=== PATIENT | male | born 1945 | race Caucasian/White ===

== ENCOUNTER 2023-04-08 13:07 | Inpatient (IN) | payer OTHER ==
[2023-04-08] MEDS ORDERED: NOREPINEPHRINE BITARTRATE/D5W 8 MG/250 ML BAG IVPB ONE (13:17)
[2023-04-08] MEDS ORDERED: VASOPRESSIN 20 UNITS/ML VIAL IV ONE (13:41)
[2023-04-08] MEDS: VASOPRESSIN 40 UNITS/100 ML BAG IV SCH ×2 (14:07→23:31)
[2023-04-08 14:24] LABS: VENOUS BASE EXCESS -18.5 mmol/L (-2-2); VENOUS O2 SATURATION 73.7 % (70-80)
[2023-04-08 14:25] LABS: HEMATOCRIT 34.7 % (35.4-49); HEMOGLOBIN 10.6 GM/dL (11.7-16.9); MCH 29.4 pg (25.7-33.7); MCHC 30.6 g/dl (32.0-35.9); MEAN CELL VOLUME 95.9 fl (80-96); MEAN PLT VOLUME 7.6 fl (7.5-11.1); PLATELET COUNT 241 10^3/uL (134-434); RBC 3.62 M/mm3 (4.00-5.60); RDW 16.5 % (11.9-15.9)
[2023-04-08 14:29] LABS: VENOUS PCO2 72.2 mmHg (38-52); VENOUS PH 6.932 (7.310-7.410)
[2023-04-08 14:35] LABS: INR 2.93 (0.83-1.09); PROTHROMBIN TIME (PATIENT) 33.6 SEC (9.7-13.0)
[2023-04-08 14:37] LABS: ACTIVATED PTT 36.1 SECONDS (25.2-36.5)
[2023-04-08 14:49] LABS: POTASSIUM 5.1 mmol/L (3.5-5.1)
[2023-04-08 14:52] LABS: ALBUMIN 1.4 g/dl (3.4-5.0); ANISOCYTOSIS 1+; BLOOD UREA NITROGEN 59.3 mg/dL (7-18); CALCIUM 7.9 mg/dL (8.5-10.1); MACROCYTOSIS 0; MAGNESIUM 2.5 mg/dL (1.8-2.4)
[2023-04-08 14:55] LABS: CREATININE 1.9 mg/dL (0.55-1.3); PHOSPHOROUS 6.8 mg/dL (2.5-4.9)
[2023-04-08 14:56] LABS: BILIRUBIN,TOTAL 0.7 mg/dL (0.2-1)
[2023-04-08] MEDS ORDERED: NOREPINEPHRINE BITARTRATE 4,000 MCG in DEXTROSE 5%-WATER - 496 ML IV SCH (15:00)
[2023-04-08 15:59] LABS: LACTIC ACID 11.5 mmol/L (0.4-2.0)
[2023-04-08] MEDS ORDERED: LACTATED RINGERS SOLUTION 1000 ML INFUS.BAG IV ONE (16:12)
[2023-04-08] MEDS ORDERED: SODIUM CHLORIDE 0.9% 500 ML INFUS.BAG IV ONE (16:13)
[2023-04-08] MEDS: NOREPINEPHRINE BITARTRATE/D5W 8 MG/250 ML BAG IVPB SCH ×3 (16:45→21:47)
[2023-04-08 17:27] LABS: ARTERIAL BLD GAS O2 SATURATION 99.7 % (95-98); ARTERIAL BLOOD GAS BASE EXCESS -15.7 mmol/L (-2-2); ARTERIAL BLOOD GAS PO2 384.6 mmHg (80-100)
[2023-04-08 17:29] LABS: ALLENS TEST POSITIVE; VENT MODE AC; VENT RATE 14
[2023-04-08] MEDS ORDERED: DEXTROSE 5%-WATER - 1,000 ML IV SCH (20:30)
[2023-04-08] MEDS ORDERED: SODIUM CHLORIDE 1,000 ML IV SCH (20:45)
[2023-04-08] MEDS: FLUDROCORTISONE ACETATE 0.1 MG TABLET (FP) PO SCH (20:57)
[2023-04-08] MEDS: HEPARIN NA (PORCINE) 5,000 UNITS/ML 1ML VIAL SQ SCH (21:13)
[2023-04-08] MEDS: HYDROCORTISONE SOD SUCCINATE 100 MG/2 ML VIAL IVPUSH SCH (21:13)
[2023-04-08] MEDS: CHLORHEXIDINE GLUCONATE 4% CLEANSER FOR DECOLONIZATION TP SCH (21:14)
[2023-04-08] MEDS: MUPIROCIN 2% TOPICAL OINTMENT FOR DECOLONIZATION NS SCH (23:30)
[2023-04-09] MEDS: HYDROCORTISONE SOD SUCCINATE 100 MG/2 ML VIAL IVPUSH SCH ×4 (02:12→22:00)
[2023-04-09] MEDS: NOREPINEPHRINE BITARTRATE/D5W 8 MG/250 ML BAG IVPB SCH ×2 (02:20→15:18)
[2023-04-09] MEDS: HEPARIN NA (PORCINE) 5,000 UNITS/ML 1ML VIAL SQ SCH ×3 (05:37→22:00)
[2023-04-09 07:43] LABS: HEMOGLOBIN 10.7 GM/dL (11.7-16.9); MCH 29.2 pg (25.7-33.7); MCHC 30.7 g/dl (32.0-35.9); MEAN PLT VOLUME 8.1 fl (7.5-11.1); PLATELET COUNT 307 10^3/uL (134-434); RBC 3.68 M/mm3 (4.00-5.60); RDW 16.3 % (11.9-15.9); WHITE BLOOD COUNT 18.6 K/mm3 (4.0-10.0)
[2023-04-09 07:54] LABS: POTASSIUM 4.8 mmol/L (3.5-5.1)
[2023-04-09 07:59] LABS: CALCIUM 7.1 mg/dL (8.5-10.1)
[2023-04-09 08:00] LABS: ALBUMIN 1.4 g/dl (3.4-5.0)
[2023-04-09 08:01] LABS: BLOOD UREA NITROGEN 70.1 mg/dL (7-18); MAGNESIUM 1.9 mg/dL (1.8-2.4)
[2023-04-09 08:03] LABS: CREATININE 2.2 mg/dL (0.55-1.3); PHOSPHOROUS 5.5 mg/dL (2.5-4.9)
[2023-04-09 08:05] LABS: BILIRUBIN,TOTAL 0.7 mg/dL (0.2-1)
[2023-04-09 09:04] LABS: ARTERIAL BLD GAS O2 SATURATION 97.4 % (95-98); ARTERIAL BLOOD GAS BASE EXCESS -15.6 mmol/L (-2-2); ARTERIAL BLOOD GAS PO2 121.7 mmHg (80-100)
[2023-04-09] MEDS: SODIUM BICARBONATE 8.4% - 150 MEQ in DEXTROSE 5%-WATER - 1,000 ML IV SCH (09:04)
[2023-04-09 09:05] LABS: ALLENS TEST POSITIVE
[2023-04-09 09:06] LABS: VENT MODE AC; VENT RATE 14
[2023-04-09 09:07] LABS: ARTERIAL BLOOD GAS pH 7.156 (7.350-7.450)
[2023-04-09 09:08] LABS: ANISOCYTOSIS 0; HELMET CELLS 0; HOWELL-JOLLY BODIES 0; MACROCYTOSIS 0; OVALOCYTE 0; ROULEAU 0; SICKELED CELLS 0; TARGET CELLS 0; TEAR DROP CELLS 0; TOXIC GRANULATION 0
[2023-04-09 09:12] LABS: LACTIC ACID 7.8 mmol/L (0.4-2.0)
[2023-04-09] MEDS: PANTOPRAZOLE SODIUM 40 MG VIAL IVPUSH SCH (09:54)
[2023-04-09] MEDS: MUPIROCIN 2% TOPICAL OINTMENT FOR DECOLONIZATION NS SCH ×2 (09:55→22:00)
[2023-04-09] MEDS: FLUDROCORTISONE ACETATE 0.1 MG TABLET (FP) PO SCH (09:55)
[2023-04-09] MEDS ORDERED: PIPERACILLIN/TAZOB 2.25 GM 2.25 GM in DEXTROSE 5%-WATER - 50 ML IVPB SCH (10:00)
[2023-04-09] MEDS ORDERED: MEROPENEM 500 MG in DEXTROSE 5%-WATER 100 ML IVPB SCH ×2 (12:15→22:00)
[2023-04-09] MEDS: MEROPENEM 500 MG in DEXTROSE 5%-WATER 100 ML IVPB SCH (12:16)
[2023-04-09 17:39] VITALS: BMI 17.3
[2023-04-09] MEDS: INSULIN SLIDING SCALE (NOVOLOG) 1 VIAL SQ SCH ×2 (18:47→23:58)
[2023-04-09] MEDS ORDERED: LACTATED RINGERS SOLUTION 1,000 ML/1,000 ML INFUS.BAG IV STA (19:31)
[2023-04-09] MEDS: VASOPRESSIN 40 UNITS/100 ML BAG IV SCH (21:59)
[2023-04-09] MEDS: CHLORHEXIDINE GLUCONATE 4% CLEANSER FOR DECOLONIZATION TP SCH (22:00)
[2023-04-10] MEDS: MEROPENEM 500 MG in DEXTROSE 5%-WATER 100 ML IVPB SCH ×2 (00:06→12:23)
[2023-04-10] MEDS: SODIUM BICARBONATE 8.4% - 150 MEQ in DEXTROSE 5%-WATER - 1,000 ML IV SCH (00:06)
[2023-04-10] MEDS: HYDROCORTISONE SOD SUCCINATE 100 MG/2 ML VIAL IVPUSH SCH ×4 (02:30→21:48)
[2023-04-10] MEDS: NOREPINEPHRINE BITARTRATE/D5W 8 MG/250 ML BAG IVPB SCH ×4 (02:31→22:06)
[2023-04-10] MEDS: HEPARIN NA (PORCINE) 5,000 UNITS/ML 1ML VIAL SQ SCH ×3 (06:06→21:49)
[2023-04-10] MEDS: INSULIN SLIDING SCALE (NOVOLOG) 1 VIAL SQ SCH ×3 (06:11→18:26)
[2023-04-10 06:31] LABS: ARTERIAL BLD GAS O2 SATURATION 98.7 % (95-98); ARTERIAL BLOOD GAS BASE EXCESS -8.1 mmol/L (-2-2); ARTERIAL BLOOD GAS PO2 145.4 mmHg (80-100); ARTERIAL BLOOD GAS pH 7.318 (7.350-7.450)
[2023-04-10 06:41] LABS: ALLENS TEST POSITIVE
[2023-04-10 06:42] LABS: PT'S TEMP 97.7
[2023-04-10 06:43] LABS: VENT MODE A/C; VENT RATE 14
[2023-04-10 09:01] LABS: CHLORIDE 106 mmol/L (98-107); POTASSIUM 4.3 mmol/L (3.5-5.1); SODIUM 139 mmol/L (136-145)
[2023-04-10 09:02] LABS: MAGNESIUM 1.6 mg/dL (1.8-2.4)
[2023-04-10 09:05] LABS: ALBUMIN 1.4 g/dl (3.4-5.0); ANION GAP 12 mmol/L (4-13); BLOOD UREA NITROGEN 69.6 mg/dL (7-18); CO2 21 mmol/L (21-32); GLUCOSE,RANDOM 265 mg/dL (74-106)
[2023-04-10 09:08] LABS: CREATININE 2.4 mg/dL (0.55-1.3)
[2023-04-10 09:09] LABS: SGPT/ALT 676 U/L (13-61)
[2023-04-10 09:10] LABS: BILIRUBIN,TOTAL 0.8 mg/dL (0.2-1); TOT PROT 3.8 g/dl (6.4-8.2)
[2023-04-10 09:11] LABS: ALK PHOS 193 U/L (45-117)
[2023-04-10 09:17] LABS: HEMATOCRIT 33.1 % (35.4-49); HEMOGLOBIN 10.5 GM/dL (11.7-16.9); MCH 28.9 pg (25.7-33.7); MCHC 31.6 g/dl (32.0-35.9); MEAN CELL VOLUME 91.5 fl (80-96); MEAN PLT VOLUME 8.6 fl (7.5-11.1); PLATELET COUNT 234 10^3/uL (134-434); RBC 3.62 M/mm3 (4.00-5.60); WHITE BLOOD COUNT 20.1 K/mm3 (4.0-10.0)
[2023-04-10 09:18] LABS: LACTIC ACID 6.1 mmol/L (0.4-2.0)
[2023-04-10 09:23] LABS: CALCIUM 6.6 mg/dL (8.5-10.1); SGOT/AST 1448 U/L (15-37)
[2023-04-10] MEDS ORDERED: MAGNESIUM 1GM/D5W - 1 GM/100 ML IVPB IVPB ONE (09:33)
[2023-04-10] MEDS ORDERED: INSULIN (NOVOLOG) ASPART 100 UNITS/ML 10ML VIAL ONE (09:56)
[2023-04-10] MEDS: INSULIN (LEVEMIR) 100 UNITS/ML UNITS SQ SCH ×2 (09:58→21:48)
[2023-04-10] MEDS: MUPIROCIN 2% TOPICAL OINTMENT FOR DECOLONIZATION NS SCH ×2 (10:00→21:49)
[2023-04-10] MEDS: PANTOPRAZOLE SODIUM 40 MG VIAL IVPUSH SCH (10:00)
[2023-04-10] MEDS: FLUDROCORTISONE ACETATE 0.1 MG TABLET (FP) PO SCH ×2 (10:00→10:50)
[2023-04-10] MEDS: VASOPRESSIN 40 UNITS/100 ML BAG IV SCH ×3 (10:00→22:05)
[2023-04-10 11:42] LABS: ANISOCYTOSIS 2+; MACROCYTOSIS 1+
[2023-04-10] MEDS: LACTATED RINGERS SOLUTION 1,000 ML/1,000 ML INFUS.BAG IV SCH (16:51)
[2023-04-10] MEDS: CHLORHEXIDINE GLUCONATE 4% CLEANSER FOR DECOLONIZATION TP SCH (21:49)
[2023-04-11] MEDS ORDERED: DEXTROSE 50%-WATER 25 GM/50 ML DISP.SYRIN ONE (01:13)
[2023-04-11] MEDS: MEROPENEM 500 MG in DEXTROSE 5%-WATER 100 ML IVPB SCH ×2 (01:28→11:29)
[2023-04-11] MEDS: INSULIN SLIDING SCALE (NOVOLOG) 1 VIAL SQ SCH ×4 (01:28→17:51)
[2023-04-11] MEDS: HYDROCORTISONE SOD SUCCINATE 100 MG/2 ML VIAL IVPUSH SCH ×4 (02:32→21:45)
[2023-04-11] MEDS: NOREPINEPHRINE BITARTRATE/D5W 8 MG/250 ML BAG IVPB SCH ×5 (02:49→21:45)
[2023-04-11] MEDS: HEPARIN NA (PORCINE) 5,000 UNITS/ML 1ML VIAL SQ SCH ×3 (06:15→21:46)
[2023-04-11] MEDS ORDERED: DEXTROSE 50%-WATER 25 GM/50 ML DISP.SYRIN IVPUSH ONE (06:47)
[2023-04-11] MEDS ORDERED: DEXTROSE 50%-WATER - 25 GM/50 ML VIAL IVPUSH ONE (06:47)
[2023-04-11] MEDS ORDERED: DEXTROSE 50%-WATER 25 GM/50 ML DISP.SYRIN IVPUSH PRN ×2 (06:47→21:40)
[2023-04-11 08:24] LABS: HEMATOCRIT 28.6 % (35.4-49); HEMOGLOBIN 9.3 GM/dL (11.7-16.9); MCH 29.6 pg (25.7-33.7); MCHC 32.4 g/dl (32.0-35.9); MEAN CELL VOLUME 91.5 fl (80-96); MEAN PLT VOLUME 9.2 fl (7.5-11.1); PLATELET COUNT 126 10^3/uL (134-434); RBC 3.12 M/mm3 (4.00-5.60); RDW 16.1 % (11.9-15.9); WHITE BLOOD COUNT 15.1 K/mm3 (4.0-10.0)
[2023-04-11 08:44] LABS: CHLORIDE 102 mmol/L (98-107); POTASSIUM 5.4 mmol/L (3.5-5.1); SODIUM 134 mmol/L (136-145)
[2023-04-11 08:46] LABS: ANION GAP 12 mmol/L (4-13); BLOOD UREA NITROGEN 72.8 mg/dL (7-18); CO2 20 mmol/L (21-32); MAGNESIUM 1.8 mg/dL (1.8-2.4)
[2023-04-11 08:47] LABS: GLUCOSE,RANDOM 67 mg/dL (74-106)
[2023-04-11 08:49] LABS: PHOSPHOROUS 5.3 mg/dL (2.5-4.9); SGPT/ALT 453 U/L (13-61)
[2023-04-11 08:50] LABS: CREATININE 2.5 mg/dL (0.55-1.3); SGOT/AST 691 U/L (15-37)
[2023-04-11 08:51] LABS: BILIRUBIN,TOTAL 0.8 mg/dL (0.2-1)
[2023-04-11 08:52] LABS: ALK PHOS 163 U/L (45-117)
[2023-04-11 08:54] LABS: CALCIUM 6.1 mg/dL (8.5-10.1)
[2023-04-11] MEDS: FLUDROCORTISONE ACETATE 0.1 MG TABLET (FP) PO SCH (09:21)
[2023-04-11] MEDS: PANTOPRAZOLE SODIUM 40 MG VIAL IVPUSH SCH (09:21)
[2023-04-11] MEDS: MUPIROCIN 2% TOPICAL OINTMENT FOR DECOLONIZATION NS SCH ×2 (09:21→21:46)
[2023-04-11] MEDS: LACTATED RINGERS SOLUTION 1,000 ML/1,000 ML INFUS.BAG IV SCH ×2 (09:21→21:44)
[2023-04-11 09:28] LABS: ANISOCYTOSIS 2+; MACROCYTOSIS 2+; OVALOCYTE 1+; TOXIC GRANULATION 1+
[2023-04-11] MEDS ORDERED: DEXTROSE 50%-WATER - 25 GM/50 ML VIAL IVPUSH PRN (11:43)
[2023-04-11] MEDS ORDERED: CEFTRIAXONE 2 GM in DEXTROSE 5%-WATER 100 ML IVPB SCH ×2 (14:00→18:00)
[2023-04-11] MEDS: VASOPRESSIN 40 UNITS/100 ML BAG IV SCH (14:01)
[2023-04-11] MEDS ORDERED: VANCOMYCIN/WATER FOR INJ (PEG) 1,000 MG/200 ML BAG IVPB ONE (14:15)
[2023-04-11 17:18] LABS: CREATININE, URINE RANDOM < 13.0 mg/dL (30-150); URINE UREA NITROGEN 85 MG/DL (350-1000)
[2023-04-11 17:51] LABS: EPI CELLS 4 /uL (0-25.1); HYALINE CASTS 0 /uL (0-3.1); PH,URINE 7.5 (5.0-8.0); URINE APPEARANCE TURBID; URINE BILIRUBIN NEGATIVE (NEGATIVE); URINE COLOR RED; URINE GLUCOSE (UA) NEGATIVE (NEGATIVE); URINE KETONE NEGATIVE (NEGATIVE); URINE LEUK ESTERASE 3+ (NEGATIVE); URINE NITRITE POSITIVE (NEGATIVE); URINE PROTEIN 2+ (NEGATIVE); URINE RBC 41 /uL (0-23.9); URINE UROBILINOGEN 0.2 mg/dL (0.2-1.0); URINE WBC 19 /uL (0-25.8)
[2023-04-11 20:32] VITALS: RESP 14
[2023-04-11] MEDS: CHLORHEXIDINE GLUCONATE 4% CLEANSER FOR DECOLONIZATION TP SCH (21:47)
[2023-04-12] MEDS: INSULIN SLIDING SCALE (NOVOLOG) 1 VIAL SQ SCH (01:08)
[2023-04-12] MEDS: NOREPINEPHRINE BITARTRATE/D5W 8 MG/250 ML BAG IVPB SCH (01:50)
[2023-04-12 02:27] VITALS: BP 77/44; PULSE 24; TEMP 96.7
== END 2023-04-12 05:00 | disposition expired | DRG 871 ==
LOC: JER 13:07 → JERBED 14:37 → JICU 15:35
PROVIDERS: ADMIT Internal Medicine Pulmonary Disease; ATTEND Psychiatry & Neurology Pain Medicine
PROC: 5A1945Z Respiratory Ventilation, 24-96 Consecutive Hours (ICD-10-PCS; principal; 2023-04-08)
PROC: 0BH17EZ Insertion of Endotracheal Airway into Trachea, Via Natural or Artificial Opening (ICD-10-PCS; 2023-04-08)
DX: A41.50 Gram-negative sepsis, unspecified (principal); K72.00 Acute and subacute hepatic failure without coma; R65.21 Severe sepsis with septic shock; G93.1 Anoxic brain damage, not elsewhere classified; N17.9 Acute kidney failure, unspecified; E87.20 Acidosis, unspecified; N39.0 Urinary tract infection, site not specified; I46.9 Cardiac arrest, cause unspecified; N18.9 Chronic kidney disease, unspecified; Z85.01 Personal history of malignant neoplasm of esophagus; K21.9 Gastro-esophageal reflux disease without esophagitis; N40.0 Benign prostatic hyperplasia without lower urinary tract symptoms; R74.01 Elevation of levels of liver transaminase levels
CPT/HCPCS: 36415; 36600; 70450-TC; 71045-TC-FY; 76775-TC; 80053; 81003; 82570; 82803; 82962; 83605; 83735; 83935; 84100; 84300; 84484; 85025; 85610; 85730; 87040; 87086; 87186; 87635; 93005; 93010; 93306-TC; 94002; 99291; J1644; J3490